=== PATIENT | female | born 1970 | race Caucasian/White ===

== ENCOUNTER → 2019-10-29 | Outpatient (CLI) | payer OTHER ==
[~2019-10-29] MED LIST: ASPI-789 PO; CALC-185 PO; IBUP-2185 PO; MAGNESIUM PO; MELA1TAB10 PO; PANT40SU PO
--- NOTE | 2019-10-29 10:49 | Diagnostic Imaging Report ---
INDICATION: Injury to the right leg 2 weeks ago. TIME OF EXAM: 10:29 AM FINDINGS: 2 views of the right tibia and fibula were obtained. Alignment at the knee and ankle appears normal. Tibia and fibula are intact. No fractures are identified. Soft tissues are unremarkable. IMPRESSION: No acute bony abnormality is detected. Dictated by: Dictated on workstation # [id number]
== END ==
LOC: RAD FS 10:17
PROVIDERS: ATTEND Nurse Practitioner Family
DX: S80.11XA Contusion of right lower leg, initial encounter (principal); X58.XXXA Exposure to other specified factors, initial encounter
CPT/HCPCS: 73590

== ENCOUNTER → 2020-02-28 | Outpatient (CLI) | payer OTHER | LOC: LAB 10:56 → LAB FS 11:10 | PROVIDERS: ATTEND Emergency Medicine | DX: R53.83 Other fatigue (principal); R50.9 Fever, unspecified; Z20.828 Contact with and (suspected) exposure to other viral communicable diseases | CPT/HCPCS: 87635 ==